=== PATIENT | male | born 1970 | race Hispanic/Latino ===

== ENCOUNTER 2016-06-06 16:55 | Emergency (ER) | payer BC ==
[~2016-06-06] VITALS: Ht 177.8 cm; Wt 75.4 kg
[~2016-06-06 16:55] MED LIST: HYDROCODON-ACE1 EAC7 PO; KEFLEX500 MG PO
[2016-06-06 20:58] VITALS: BP 133/95
== END 2016-06-06 21:02 | disposition home or self-care (01) ==
LOC: EME 16:55
PROC: 3E0234Z Introduction of Serum, Toxoid and Vaccine into Muscle, Percutaneous Approach (ICD-10-PCS; principal; 2016-06-06)
DX: S61.531A Puncture wound without foreign body of right wrist, initial encounter (principal); W26.8XXA Contact with other sharp object(s), not elsewhere classified, initial encounter; R20.2 Paresthesia of skin; Z23 Encounter for immunization
CPT/HCPCS: 73110; 99281; 99283